=== PATIENT | male | born 1990 | race Caucasian/White ===

== ENCOUNTER 2022-12-24 05:40 | Emergency (ER) | payer OTHER ==
[2022-12-24 05:59] VITALS: BP 107/71; PULSE 108; RESP 20; TEMP 97.8; BMI 19.5
[2022-12-24] MEDS ORDERED: IBUPROFEN 400 MG TABLET (FP) PO ONE ×2 (06:22→06:31)
[2022-12-24] MEDS ORDERED: LIDOCAINE 4% PATCH TP ONE ×2 (06:23→06:31)
== END 2022-12-24 06:49 | disposition home or self-care (01) ==
LOC: JER 05:40
DX: M54.6 Pain in thoracic spine (principal); M54.2 Cervicalgia; V43.52XA Car driver injured in collision with other type car in traffic accident, initial encounter; Y92.410 Unspecified street and highway as the place of occurrence of the external cause
CPT/HCPCS: 99283-25

== ENCOUNTER 2022-12-26 05:17 | Emergency (ER) | payer OTHER ==
[2022-12-26 05:35] VITALS: BP 131/88; PULSE 85; RESP 18; TEMP 98.4; BMI 25.4
[2022-12-26] MEDS ORDERED: KETOROLAC TROMETHAMINE 30 MG/1 ML VIAL IM ONE (06:02)
[2022-12-26] MEDS ORDERED: LIDOCAINE 5% TOPICAL PATCH TP ONE (06:02)
[2022-12-26] MEDS ORDERED: ACETAMINOPHEN 500 MG TABLET (FP) PO ONE (06:02)
[2022-12-26] MEDS ORDERED: ACETAMINOPHEN 325 MG TABLET (FP) ONE (06:05)
[2022-12-26] MEDS ORDERED: KETOROLAC TROMETHAMINE 30 MG/1 ML VIAL ONE (06:05)
[2022-12-26] MEDS ORDERED: LIDOCAINE 4% PATCH TP ONE (06:05)
[2022-12-26] MEDS ORDERED: LIDOCAINE PATCH REMOVAL MC ONE (18:00)
== END 2022-12-26 09:55 | disposition home or self-care (01) ==
LOC: JER 05:17
PROC: 3E023GC Introduction of Other Therapeutic Substance into Muscle, Percutaneous Approach (ICD-10-PCS; principal; 2022-12-26)
DX: M54.2 Cervicalgia (principal); M54.50 Low back pain, unspecified; R11.10 Vomiting, unspecified; M54.6 Pain in thoracic spine; V49.40XA Driver injured in collision with unspecified motor vehicles in traffic accident, initial encounter; Y93.I9 Activity, other involving external motion
CPT/HCPCS: 72070-TC-FY; 72100-TC-FY; 99284-25